=== PATIENT | female | born 1965 | race Caucasian/White ===

== ENCOUNTER 2022-12-17 10:00 | Observation (INO) ==
--- NOTE | 2022-12-02 08:39 | PAT Medication Instructions ---
Medication Instructions Date of Service December 02, 2022 Home Medications meloxicam 15 mg tablet 15 mg PO QAM ashwagandha extract 120 mg capsule 120 mg PO 2XWK calcium carbonate 600 mg calcium (1,500 mg) tablet (Calcium) 600 mg PO QAM cyanocobalamin (vitamin B-12) 1,000 mcg tablet (Vitamin B-12) 1,000 mcg PO QAM estradiol 0.5 mg tablet 0.5 mg PO UD ASK your surgeon for instructions meloxicam 15 mg tablet 15 mg PO QAM estradiol 0.5 mg tablet 0.5 mg PO UD STOP taking 2 weeks before surgery (or as soon as possible if surgery is within 2 weeks) ashwagandha extract 120 mg capsule 120 mg PO 2XWK DO NOT take the morning of surgery calcium carbonate 600 mg calcium (1,500 mg) tablet (Calcium) 600 mg PO QAM cyanocobalamin (vitamin B-12) 1,000 mcg tablet (Vitamin B-12) 1,000 mcg PO QAM Other Notes If you have any questions please call us at [phone] or [phone] or [phone] or [phone]
--- NOTE | 2022-12-02 09:42 | Anesthesiology Consultation ---
Date of Service December 02, 2022 Assessment & Plan (1) Encounter for pre-operative examination: - COVID screening: Per assessment on 12/02: No known COVID-19 positive contacts or current COVID-19 related symptoms. Travel screen negative. Patient vaccinated. At surgeon discretion if preop Covid testing being done. - Outpatient joint assessment: Pt currently scheduled for inpatient pathway. If surgeon requests review for outpatient joint pathway, patient is an acceptable candidate for outpatient joint program from anesthesia standpoint pending surgeon's office assessment that patient is motivated, has good support and completes Same Day Joint Program preop requirements. Chart Review Chart Review: Acceptable Risk for Surgery and Patient seen in Pre Admission Testing Teaching & Discussion Pre-Anesthesia Teaching/Discussion Notes: Instructed NPO after midnight before surgery,except medications with 15 cc of water. Medication instructions provided according to the PAT guidelines. History Surgery Operation Date: 12/17/22 08:15 Proposed Procedures p Left Total Knee Arthroplasty - Alfredo Chavez MD Height/Weight Height: 5 ft 10 in Weight: 75.5 kg Allergies Allergy/AdvReac Type Severity Reaction Status Date / Time No Known Drug Allergies Allergy Verified 12/01/22 16:31 Medications Home Medications Medication Instructions Recorded Confirmed Last Taken meloxicam 15 mg tablet 15 mg PO QAM 12/23/21 12/01/22 Unknown ashwagandha extract 120 mg capsule 120 mg PO 2XWK 12/01/22 12/01/22 Unknown calcium carbonate 600 mg calcium 600 mg PO QAM 12/01/22 12/01/22 Unknown (1,500 mg) tablet (Calcium) cyanocobalamin (vitamin B-12) 1,000 mcg PO QAM 12/01/22 12/01/22 Unknown 1,000 mcg tablet (Vitamin B-12) estradiol 0.5 mg tablet 0.5 mg PO UD 12/01/22 12/01/22 Unknown Past Medical History Medical History Depression Situational (around time of 's ), no meds Hot flashes on estradiol Hypertension No meds currently Exercise / Class Metabolic Activity II 4-5 Yardwork/Stairs/Walk up hill Past Family History Family History Father Cancer non hodgkins lymphoma Other No family history of adverse response to anesthesia Denies family history of Ovarian cancer Prostate cancer Myocardial infarction Breast cancer Colorectal cancer Past Surgical History Surgical History H/O colonoscopy H/O: hysterectomy History of arthroscopy of left knee History of wisdom tooth extraction Past Anesthesia History No Hx of Anesthesia Complications and No Family Hx of Anesthesia Complications History of PONV No Hx of PONV and No Hx of Motion Sickness Social History Smoking Status: Former smoker Do You Dip or Chew Tobacco: No Smoking End Date: Quit 2013 Hx Alcohol Use: Yes Alcohol type: wine alcohol intake frequency: a few times a week Hx Substance Use: No substance use type: does not use Review of Systems Patient denies chest pain, shortness of breath, dyspnea on exertion, fever, chills, cough, wheezing, palpitations. Physical Exam Vital Signs VITALS BP 157/91 P 72 TEMP 98.5 SP02 99%RA RESP 16 PHYSICAL Full cervical extension range of motion. Full TMJ range of motion. TMD 3 finger breaths Mallampati Score 2 Dentition: intact, upper right side bridge Lungs: clear throughout to auscultation Cardiac: regular rate and rhythm, no murmurs noted Spine: normal Carotid arteries: negative bruit Extremities: no edema Lab Results Anesthesia Preop Results Results Anesthesia Widget: WBC 6.84 K/ul (4.8-10.8) 12/02/22 Hgb 13.7 g/dl (12.0-16.0) 12/02/22 Hct 40.3 % (37.0-47.0) 12/02/22 Plt 237 K/uL (130-400) 12/02/22 Na 136 mmol/L (136-145) 12/02/22 K 3.9 mmol/L (3.5-5.1) 12/02/22 Cl 101 mmol/L (98-107) 12/02/22 CO2 33 mmol/L (21-32) H 12/02/22 BUN 19 mg/dl (6-23) 12/02/22 Creat 0.63 mg/dl (0.6-1.2) 12/02/22 Glucose Level 98 mg/dl (70-99(Fasting)) 12/02/22 PT 9.9 Seconds (9.0-12.0) 12/02/22 PTT 25.5 Seconds (21.0-31.0) 12/02/22 INR 0.9 (0.9-1.1) 12/02/22 HA1c 5.4 % (4.5-5.6) 12/02/22 Urine Color Yellow 12/02/22 Urine Appearance Clear (Clear) 12/02/22 Urine pH 5.5 (4.5-7.5) 12/02/22 Urine Specific [place] 1.024 (1.000-1.030) 12/02/22 Urine Protein Negative (Negative) 12/02/22 Urine Glucose (UA) Negative (Negative) 12/02/22 Urine Ketones Trace (Negative) H 12/02/22 Urine Blood Negative (Negative) 12/02/22 Urine Nitrite Negative (Negative) 12/02/22 Urine Bilirubin Negative (Negative) 12/02/22 Urine Urobilinogen Negative (Negative) 12/02/22 Urine Leukocyte Esterase Negative (Negative) 12/02/22 Blood Type B Positive 12/02/22 Antibody Screen NEGATIVE 12/02/22 Testing Electrocardiogram Date: 12/02/22 NSR at 65bpm. COVID-19 Risk Screen Screening Information COVID-19 Screen Date: 12/02/22 Exposure 21 Days Family/Household +COVID Last 21 Days: No Exposure 10 Days Any COVID Exposure Last 10 Days: No Symptoms Last 10 Days Experienced COVID Sx Last 10 Days: No + COVID 0-90 Days COVID + in Last 0-90 Days: No
--- NOTE | 2022-12-02 15:57 | History & Physical Report ---
Date of Service December 02, 2022 Assessment & Plan (1) Osteoarthritis of left knee: Plan: PRE-OP Diagnosis: Left knee osteoarthritis Planned Procedure: Left total knee arthroplasty Plan: Patient is scheduled to undergo this procedure at the [facility] with Dr. Chavez on December. Risks and complications of the procedure such as: Infection, bleeding, pain, scarring, nerve blood vessel damage, weakness, wound problems, stiffness, incomplete relief of symptoms, hardware failure, hardware loosening, wear, fracture, tendon or ligament injury, blood clots, embolism, cardiac, stroke and were explained to the patient at her visit today and informed consent for the procedure was obtained. Patient also understands risks of proceeding with surgical intervention during the COVID-19 pandemic. Currently she is asymptomatic and states that she has not been in contact with anyone positive for the virus recently. We will need to obtain preoperative medical clearance from the patient's primary care provider. Patient is scheduled to meet with anesthesia at the hospital later this morning. While there she will obtain a CBC with differential, complete metabolic panel, PT/INR, PTT, blood type and screen, urinalysis, urine culture and sensitivity, EKG and a nasal culture for MRSA. During today's visit we reviewed the total knee packet. I provided the patient with paperwork to obtain obtaining a handicap placard for her vehicle. I provided her with information about lectures offered by [facility] in regards to joint replacement surgery. I provided her with an order to obtain a walker. I recommended that she purchase a shower chair and raised toilet seat. We discussed discharge planning from the hospital. Patient states she will most likely do in-home physical therapy for the first 2 weeks before transitioning to outpatient physical therapy. I advised the patient that she will be provided with a prescription for narcotic pain medication for postoperative pain control. We will have her on aspirin twice daily for the first 30 days postoperatively for blood clot prevention. Patient verbalized understanding of all information provided during today's visit. She thanks for the care that she received. If she has questions or concerns prior to her surgery, she will contact clinic. Patient be scheduled for 2-week postoperative follow-up visit with myself on December 30. This chart was completed utilizing [employer] voice recognition software. Grammatical errors, random word insertions, pronoun errors, and in complete sentences are an occasional consequence of the system. Any questions or concerns about the content, text, or information contained within the body of this dictation should be addressed directly to the physician for clarification. History of Present Illness Chief Complaint: Chief Complaint: Left knee pain Primary Care Provider: Mervin Wang History of Present Illness (including history relevant to procedure): This 57-year-old female presents to clinic today for her preoperative history and physical. Patient has significant history for osteoarthritis affecting her left knee. I have seen her numerous times in the past for large knee joint effusions and have aspirated them and injected corticosteroid injections. Patient states that most the pain is localized to the lateral aspect of the right knee. She has tried viscosupplementation injections with Euflexxa and been on oral meloxi cam without relief of her symptoms she states she had the knee operated on in [place] several years ago for meniscal injury. She states that the pain is caused her to have a gait disturbance and affects her from doing her daily walks. She is electing to proceed with surgical intervention and wants to stay overnight in the hospital following her procedure. Review Of Systems: A 12 point review of systems is performed and is unremarkable except for those things stated in the HPI and past medical history. Past Medical History: Problems: Osteoarthritis of left knee Knee pain Procedure History Procedure Procedure Date Comments Mammogram Hysterectomy 12/19/2021 - Impression:There is no mammographic evidence of malignancy X-ray of left knee 06/03/2021 - No acute fracture. X-ray of left knee 11/25/2020 - good preservation of joint line Allergies and Sensitivities: NKA No Known Medication Allergies Current Home Meds: (Last Updated 12/02 09:21) ascorbic acid (Vitamin C) cholecalciferol (Vitamin D3) cyanocobalamin (Vitamin B12) estradiol (estradiol 0.5 mg oral tablet) 0.5 mg PO Daily meloxicam (Mobic 15 mg oral tablet) 15 mg PO Daily traMADol (traMADol 50 mg oral tablet) 50 mg PO q4h PRN: as needed for pain turmeric Allergies Allergy/AdvReac Type Severity Reaction Status Date / Time No Known Drug Allergies Allergy Verified 12/01/22 16:31 Home Medications Medication Instructions Recorded Confirmed Type meloxicam 15 mg tablet 15 mg PO QAM 12/23/21 12/01/22 History ashwagandha extract 120 mg capsule 120 mg PO 2XWK 12/01/22 12/01/22 History calcium carbonate 600 mg calcium 600 mg PO QAM 12/01/22 12/01/22 History (1,500 mg) tablet (Calcium) cyanocobalamin (vitamin B-12) 1,000 mcg PO QAM 12/01/22 12/01/22 History 1,000 mcg tablet (Vitamin B-12) estradiol 0.5 mg tablet 0.5 mg PO UD 12/01/22 12/01/22 History Past Med/Surg History Medical History Depression Situational (around time of 's ), no meds Hot flashes on estradiol Hypertension No meds currently Surgical History H/O colonoscopy H/O: hysterectomy History of arthroscopy of left knee History of wisdom tooth extraction Family History Father Cancer non hodgkins lymphoma Other No family history of adverse response to anesthesia Denies family history of Ovarian cancer Prostate cancer Myocardial infarction Breast cancer Colorectal cancer Social History Smoking Status: Former smoker Second Hand Exposure: No; Hx Alcohol Use: Yes Alcohol type: wine Hx Substance Use: No Preferred Language: [place] Communication Ability: Effective Caving Guide Required: No Beliefs That Will Affect Care: None marital status: / Current Living Situation: Alone current occupational status: employed 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 - [employer] How many Children do You have: 1 How many Children do You have Comment: one son - lives in [place] Feels Safe at Home: Yes Diet Comment: well balanced diet caffeine: Yes Dental Care, Regularly: Yes Seatbelt Use: always Sunscreen Use: Yes Assistive Devices: Contacts Review of Systems All systems reviewed & are unremarkable except as noted in Subjective Physical Exam Physical Exam: Physical Exam: (relevant to the procedure, including heart and lung evaluation) General: Alert and oriented x3 with proper grooming and hygiene Eyes: Pupils are equal and reactive to light with accommodation. Extraocular movements are intact Throat: Posterior oropharynx clear with absence of edema, erythema or exudate. Dentition is appropriate Cardiac: Regular rate and rhythm with no murmurs or gallops appreciated Lungs: Clear to auscultation throughout with no wheezing, rales or rhonchi Abdomen: Nonobese, nondistended, nontender with NABS Extremities: Left knee; range of motion is from 4 degrees of extension to about 115 degrees of flexion. There is a small effusion over the anterior aspect of the knee. Patient experiences some slight medial and lateral joint line tenderness when the knee is palpated in the flexed position. Her patella is freely mobile. She has no laxity with varus or valgus stressing. AP drawer sign Carlo test negative. She is neurovascular intact in left lower extremity. Neuro: Cranial nerves II through XII are intact no motor or sensory deficit Skin: Normal appearance with no open skin areas or discharge Results & Data ([facility]) Diagnostic Findings Studies (relevant to the procedure): X-rays done include 3 views of the left knee and standing long-leg alignment films. On the long-leg alignment films, she is in pathologic valgus alignment in both knees with the weightbearing axis passing through the lateral tibial plateau. However, the valgus alignment is more severe on the affected left knee than the right knee. Three-view series of the left knee was compared with her prior films done last year. There has been significant loss of the lateral joint space on today's films compared with her prior films. She is now near [id number] arthritis in the lateral compartment of the left knee.
--- NOTE | 2022-12-02 22:29 | Electrocardiogram Report ---
Test Reason : Blood Pressure : / mmHG Vent. Rate : 065 BPM Atrial Rate : 065 BPM P-R Int : 166 ms QRS Dur : 082 ms QT Int : 384 ms P-R-T Axes : 080 086 076 degrees QTc Int : 399 ms Normal sinus rhythm Normal ECG When compared with ECG of 13-FEB-2009 00:13, No significant change was found Confirmed by Leonard Walton ([id number]) on 12/02/2022 10:29:28 PM Referred By: Alfredo Chavez Confirmed By:Leonard Walton
[~2022-12-17 10:00] MED LIST: ACETAMINOPHEN 500 MG TAB PO SCH; CeleBREX 200 MG CAP PO SCH; FAMOTIDINE 20 MG TAB PO SCH; LR 500ML BOLUS, THEN 15ML/HR IV SCH; LR 60ML/HR IV SCH; ROPIVACAINE 0.5% HCL/PF 150 MG, BUPIVACAINE 0.75% MPF 20 ML, EPINEPHrine 0.15 MG, Ketor... INFIL SCH; Scopolamine 1 MG TDSY TD SCH; TRANEXAMIC ACID 1,000 MG **IV Intra-op IV SCH; TRANEXAMIC ACID 1,000 MG **IV Pre-op IV SCH; ceFAZolin 2000MG 2,000 MG/15 ML SYR IV SCH; dexAMETHasone 4 MG TAB PO SCH; estradioL 1 MG TAB PO SCH; traMADol HCL 50 MG TABLET PO SCH
[2022-12-17] MEDS ORDERED: ROPIVACAINE 0.5% 5 MG/ML 30 ML VIAL ONE (10:26)
[2022-12-17] MEDS ORDERED: BUPIVACAINE 0.5 % 5 MG/1 ML PF 10ML VIAL ONE (10:26)
[2022-12-17] MEDS ORDERED: PROPOFOL IV EMULSION 10 MG/ML 20 ML VIAL IV ONE ×4 (11:30→14:10)
[2022-12-17] MEDS ORDERED: LIDOCAINE 2% MPF LOCAL 5 ML VIAL INFIL ONE (11:30)
[2022-12-17] MEDS ORDERED: fentaNYL citrate 100 MCG/2 ML VIAL ONE (11:30)
[2022-12-17] MEDS ORDERED: MIDAZOLAM HCL 1 MG/ML 2ML VIAL ONE (11:31)
[2022-12-17] MEDS ORDERED: ePHEDrine sulfate 50 MG/ML AMP IV PRN (11:36)
[2022-12-17] MEDS ORDERED: ATROPINE SULFATE 0.1 MG/ML 10ML SYR IV PRN (11:36)
[2022-12-17] MEDS ORDERED: ONDANSETRON INJ 2 MG/ML 2 ML VIAL IV PRN ×2 (11:36→15:21)
[2022-12-17] MEDS ORDERED: HYDROmorphone INJ 1 MG/ML SYRINGE IV PRN (11:36)
--- NOTE | 2022-12-17 11:36 | Anesthesiology Consultation ---
Date of Service December 17, 2022 Assessment & Plan Chart Review Chart Review: Acceptable Risk for Surgery Consults Requested none ASA ASA2 Proposed Anesthesia Anesthesia Type: MAC Spinal Regional Site: Adductor Canal Risk / Benefits Reviewed With: PT / POA / Parent / Guardian, Accepts Plan and Informed Consent Obtained History Surgery Operation Date: 12/17/22 11:55 Proposed Procedures p Left Total Knee Arthroplasty - Alfredo Chavez MD Height/Weight Height: 5 ft 10 in Weight: 74.072 kg Allergies Allergy/AdvReac Type Severity Reaction Status Date / Time No Known Drug Allergies Allergy Verified 12/17/22 10:33 Medications Home Medications Medication Instructions Recorded Confirmed Last Taken meloxicam 15 mg tablet 15 mg PO QAM 12/23/21 12/17/22 12/02/22 08:00 ashwagandha extract 120 mg capsule 120 mg PO 2XWK 12/01/22 12/17/22 12/06/22 08:00 calcium carbonate 600 mg calcium 600 mg PO QAM 12/01/22 12/17/22 12/09/22 08:00 (1,500 mg) tablet (Calcium) cyanocobalamin (vitamin B-12) 1,000 mcg PO QAM 12/01/22 12/17/22 Unknown 1,000 mcg tablet (Vitamin B-12) estradiol 0.5 mg tablet 0.5 mg PO UD 12/01/22 12/17/22 12/12/22 08:00 tramadol 50 mg PO TID PRN Pain 12/17/22 12/17/22 12/16/22 20:00 Active Medications Generic Name Dose Route Start Last Admin Trade Name Santy PRN Reason Stop Dose Admin Acetaminophen 1,000 mg 12/17/22 06:00 12/17/22 10:57 Acetaminophen 500 Mg Tab PO 12/17/22 18:00 1,000 mg PREOP COLTON Administration Celecoxib 200 mg 12/17/22 06:00 12/17/22 10:58 Celebrex 200 Mg Cap PO 12/17/22 18:00 200 mg PREOP COLTON Administration Dexamethasone 8 mg 12/17/22 06:00 12/17/22 10:57 Dexamethasone 4 Mg Tab PO 12/17/22 18:00 8 mg PREOP COLTON Administration Famotidine 20 mg 12/17/22 06:00 12/17/22 10:58 Famotidine 20 Mg Tab PO 12/17/22 18:00 20 mg PREOP COLTON Administration Lactated Ringer's 1,000 mls @ 60 mls/hr 12/17/22 06:00 12/17/22 10:55 Lr IV 12/17/22 22:39 Not Given .[id number] COLTON Tranexamic Acid 1,000 mg in 100 mls @ 600 mls/hr 12/17/22 06:00 12/17/22 12:29 Tranexamic Acid / 0.7% Nacl IV 12/17/22 18:00 600 mls/hr TODAY@0600 COLTON Administration Lactated Ringer's 1,000 mls @ 15 mls/hr 12/17/22 06:00 12/17/22 10:51 Lr IV 12/17/22 18:00 15 mls/hr .[id number] COLTON Administration Scopolamine 1 mg 12/17/22 06:00 12/17/22 10:57 Scopolamine 1 Mg Tdsy TD 12/17/22 18:00 1 mg PREOP COLTON Administration Tramadol HCl 50 mg 12/17/22 06:00 12/17/22 10:58 Tramadol Hcl 50 Mg Tablet PO 12/17/22 18:00 50 mg PREOP COLTON Administration NPO Date Last Intake of Fluids: 12/16/22 Time Last Intake of Fluids: 21:30 Date Last Intake of Solids: 12/16/22 Time Last Intake of Solids: 19:45 Past Medical History Medical History Depression Situational (around time of 's ), no meds Hot flashes on estradiol Hypertension No meds currently Exercise / Class Metabolic Activity II 4-5 Yardwork/Stairs/Walk up hill Past Family History Family History Father Cancer non hodgkins lymphoma Other No family history of adverse response to anesthesia Denies family history of Ovarian cancer Prostate cancer Myocardial infarction Breast cancer Colorectal cancer Past Surgical History Surgical History H/O colonoscopy H/O: hysterectomy History of arthroscopy of left knee History of wisdom tooth extraction Past Anesthesia History No Hx of Anesthesia Complications and No Family Hx of Anesthesia Complications History of PONV No Hx of PONV and No Hx of Motion Sickness Social History Smoking Status: Former smoker Do You Dip or Chew Tobacco: No Smoking End Date: Quit 2013 Hx Alcohol Use: Yes Alcohol type: wine alcohol intake frequency: a few times a week Hx Substance Use: No substance use type: does not use Physical Exam Vital Signs Last Vital Signs Temp 36.9 C 12/17/22 10:39 Pulse 77 12/17/22 12:55 Resp 16 12/17/22 12:55 BP 162/91 H 12/17/22 12:55 Pulse Ox 100 12/17/22 12:55 O2 Del Method Oxymask 12/17/22 12:55 O2 Flow Rate 5 12/17/22 12:55 Constitutional no acute distress ENMT Thyromental Distance: > or= 3.5 Finger Breadths Mallampati Class: II Neck normal visual inspection Respiratory normal respiratory effort; no respiratory distress Auscultation: lungs clear to auscultation bilaterally Cardiovascular Rate/Rhythm: regular rate and regular rhythm Heart Sounds: no murmur Psychiatric Orientation: alert and oriented x 3 Testing Electrocardiogram Date: 12/02/22 NSR at 65bpm.
--- NOTE | 2022-12-17 12:20 | History & Physical Bridge Note ---
Date of Service December 17, 2022 History & Physical Bridge Note I have examined the patient, reviewed the History & Physical and in the interval since the performance of the History & Physical I have noted the following changes of clinical significance: no changes noted
[2022-12-17] MEDS ORDERED: ORTHO JOINT ANESTHETIC ONE (12:33)
[2022-12-17] MEDS ORDERED: LABETALOL HCL IV 5 MG/ML 20ML IV ONE (13:34)
--- NOTE | 2022-12-17 15:13 | Operative Report ---
Post Operative Report Pre & Post Diagnosis Operation Date: 12/17/22 11:55 Pre-Op Diagnosis: Left Knee Osteoarthritis Post-Op Diagnosis: Left Knee Osteoarthritis I identified the patient and participated in the time-out.: Yes Procedure Operation Date: 12/17/22 11:55 Actual Procedures p Left Total Knee Arthroplasty(Left) - Alfredo Chavez MD Surgeon Alfredo Chavez MD Plastics Sheet Finishing Press Operator ANAYA Dangelo PA-C and Aman Olson MS-2. No resident or fellow was available Estimated Blood Loss 50 Findings Consistent with Post-Op Diagnosis Specimens Left knee bone and soft tissue contents Anesthesia Type Spinal MAC Complications none Disposition Disposition: Recovery Room Indications 57-year-old female with left knee osteoarthritis refractory to conservative management. X-rays and MRI were obtained. She has valgus malalignment of her knee, as well as full-thickness chondral loss in the lateral compartment, both the femoral and tibial sides. She has failed extensive nonsurgical management. She is therefore a candidate for total knee replacement. I had a long discussion with her about the risks and benefits of surgery, alternatives, and expected outcomes. After reviewing all these she elected to proceed with surgery. All questions were answered. Informed consent was signed. Description of Procedure Patient was identified in the preoperative holding area where the surgical site, left knee, was marked. Spinal anesthetic was placed by anesthesia. Patient was brought back to the operating room, placed on the operating room table, and IV sedation was administered. A bump was placed underneath the ipsilateral hip. All bony prominences were padded. Perioperative antibiotics and tranexamic acid were administered. Exam under anesthesia was performed. This demonstrated ra nge of motion from 5degrees to 125 degrees. She had valgus malalignment of approximately 15 degrees. Collateral ligament testing was stable at 30 degrees of flexion. The surgical site was prepped and draped in the normal sterile fashion. Prior to incision a multidisciplinary timeout was called. All in the room were in agreement. We began by exsanguinating the limb with an Esmarch bandage. Tourniquet was inflated to 250 mmHg. A 14 cm long incision was made over the anterior aspect of the knee. I dissected through the subcutaneous tissues to the level of the fascia. Full-thickness flaps were raised above the fascia. A median parapatellar arthrotomy was made. Half the fat pad was excised. A medial release was performed with Bovie electrocautery on the proximal tibia. Synovitis in the knee and suprapatellar pouch was removed. The patella was then everted and held with 2 towel clips. The thickness of the patella was measured at 25 mm. Patellar resection was performed. Caliper showed the patella thickness now to be 15 mm. A size 38 trial was placed and had a great fit. The 3 drill holes were placed then the trial button was placed. The patellar thickness was now 25 mm which I was very happy with. The patellar trial was then removed, and the knee was flexed up. Retractors were placed to protect the MCL and LCL. The knee was inspected and demonstrated full-thickness chondral loss of both the lateral femoral condyle and lateral tibial plateau. Osteophytes were removed from the lateral femoral condyle and intercondylar notch. The ACL and PCL were excised. Intramedullary drill guide was drilled into the femur. Distal femoral cutting guide was placed set at 5 degrees of valgus to resect 10 mm off the distal femur. Distal femoral resection was made without difficulty. The tibia was then exposed. The lateral meniscus was sharply excised. The tibial cutting jig was positioned in line with the tibial shaft in the coronal plane and with 3 degrees of posterior slope in the sagittal plane to resect 9 mm off the less involved compartment. The jig was then pinned in position and the tibial cut was made. We then brought the knee into full extension. Lamina spreaders were placed. The medial meniscus was excised. The extension block was then placed for 5 mm thickness poly. This gave us full extension and excellent stability to varus and valgus stress. Next the extension block was removed, the knee was flexed up, collateral ligaments were protected, and the epicondylar axis and Whitesides line were marked out on the distal femoral cut. Femoral sizing guide was placed. External rotation was set at 5 degrees so that the posterior cut would be parallel with the epicondylar axis and perpendicular with Whitesides line. The patient sized to a size 6 femur. The appropriately sized 4-in-1 cutting jig was then fixated to the bone using threaded, headed pins. We confirmed that we would not notch the femur with our anterior cut. Our 4 cuts were then made. The cutting jig was removed. The flexion block was then placed with the knee held at 90 degrees. There was excellent stability to varus and valgus at 90 degrees with no gapping medially or laterally. Next the box cutting jig was placed on the distal femur. The box cut was made and the femoral trial was impacted into position. Lug holes were drilled in the distal femur. We then reexposed the tibia. The tibia was sized to a 6 for a fixed bearing component. The tibial tray with a 5 mm thickness polyethylene liner was placed on the cut tibial surface and the knee was brought through a full range of motion. There was excellent stability to varus valgus stress throughout a full range of motion, which was approximately 0-145 degrees. Bovie electrocautery was used to serina the tibia at the site where the tibial tray rested in full extension. We then flexed up the knee, removed the polyethylene liner, and pinned the tibial tray into position to match the cautery serina. The intramedullary drill followed by the keel punch were used to prepare the tibia. Next the trial components were removed. I then injected the posterior capsule and periosteum with the periarticular injection cocktail. The bone cuts were then irrigated and dried while the cement was mixed on the back table. The femoral component was cemented on first. Excess cement was removed. A lap sponge was placed over the femoral component for protection, then the tibia was subluxated anteriorly. The all polyethylene tibial component was then cemented in place. Again excess cement was removed. The knee was brought into full extension and held there until the cement cured. The patella was cemented and clamped. Dilute Betadine solution was then allowed to soak in the knee while the cement cured. Once the cement was fully cured, the knee was irrigated out, the tourniquet was let down and meticulous hemostasis was ensured. The knee was brought through a full range of motion. I was were very happy with the patella tracking and the stability. We then began to close. Interrupted 0 Vicryl suture was used to repair the patellar retinaculum in [id number] fashion. The quadriceps and patellar tendons were run with #1 Vicryl. The deep dermal layer was closed with interrupted 2-0 Vicryl. Dermabond and Zipline was used for the skin, followed by a Silverlon dressing. A compressive Len wrap was placed and the knee was placed into a knee immobilizer. Patient's sedation was lifted and was transferred to recovery room in stable condition. Summary of implants: Depuy Attune Posterior Stabilized Cemented Femur, size 6 narrow left Attune All-polyethylene tibial component, posterior stabilized 5 mm thickness, size 6 Attune patella medialized dome, size 38 2 batches of simplex high viscosity bone cement Postoperative course: Patient will be admitted to the floor for pain control and monitoring. Weightbearing as tolerated with a walker with no knee range of motion for 48 hours. Aspirin for DVT prophylaxis. I attest to the content of the Intraoperative Record and any orders documented therein. Any exceptions are noted below.
[2022-12-17] MEDS ORDERED: bisacodyL 10 MG SUPP PR PRN (15:21)
[2022-12-17] MEDS ORDERED: NALOXONE HCL 0.4 MG/1 ML VIAL/CARP IV PRN (15:21)
[2022-12-17] MEDS ORDERED: METOCLOPRAMIDE HCL INJ 5 MG/ML 2 ML VIAL IV PRN (15:21)
[2022-12-17] MEDS ORDERED: diphenhydrAMINE 50 MG/ML VIAL IV PRN (15:21)
[2022-12-17] MEDS ORDERED: ALUMINUM/MAGNESIUM SUSP 30 ML UDC PO PRN (15:21)
[2022-12-17] MEDS ORDERED: MAGNESIUM HYDROXIDE SUSP 30 ML UDC PO PRN (15:21)
--- NOTE | 2022-12-17 15:21 | Operative Report ---
Post Operative Report Pre & Post Diagnosis Operation Date: 12/17/22 11:55 Pre-Op Diagnosis: Left Knee Osteoarthritis Post-Op Diagnosis: Left Knee Osteoarthritis I identified the patient and participated in the time-out.: Yes Procedure Operation Date: 12/17/22 11:55 Actual Procedures p Left Total Knee Arthroplasty(Left) - Alfredo Chavez MD Surgeon Alfredo Chavez MD Theater Education Teacher ANAYA Dangelo PA-C and Aman Olson MS-2. No resident or fellow was available Estimated Blood Loss 50 Findings Consistent with Post-Op Diagnosis Specimens none Description of Procedure I was present during the entire procedure assisting with positioning, prepping, draping, wound retraction, wound closure, dressing and immobilizer placement. No fellow present. Please see Dr. Chavez procedure note for specifics of the case. I attest to the content of the Intraoperative Record and any orders documented therein. Any exceptions are noted below.
[2022-12-17] MEDS ORDERED: ASHWAGANDHA PO SCH (15:30)
--- NOTE | 2022-12-17 16:00 | XRay Report ---
LEFT KNEE 2 VIEWS History: Left total knee arthroplasty. Degenerative arthritis. Postop. FINDINGS: The patient is status post a left total knee arthroplasty. The hardware is intact. No fract ure or dislocation. IMPRESSION: Left total knee arthroplasty. No evidence for hardware complication. ACT 112: Negative or not required by law. Electronically signed by: Liang Jarrett M.D. 12/17/2022 3:58 PM
[2022-12-17] MEDS: SODIUM CHLORIDE 0.9% 1000ML 1,000 ML IV SCH ×2 (16:50→22:41)
[2022-12-17] MEDS: Scopolamine CHECK PATCH PLACEMENT SCH (16:51)
[2022-12-17] MEDS: KETOROLAC TROMETHAMINE 15 MG/ML VIAL IV SCH ×2 (16:51→21:47)
--- NOTE | 2022-12-17 18:37 | Anesthesiology Progress Note ---
Date of Service December 17, 2022 Anesthesia Post Procedure Vital Signs Vital Signs: Temp Pulse Pulse Pulse Resp BP Pulse Ox 12/17/22 18:01 97.7 F 78 16 133/83 97 12/17/22 17:15 97.7 F 78 16 133/77 96 12/17/22 16:45 97.5 F L 63 16 126/77 95 12/17/22 16:15 97.9 F 68 16 129/77 94 12/17/22 16:05 60 12 127/77 95 12/17/22 15:55 98.1 F 62 12 131/79 92 12/17/22 15:45 69 16 136/81 94 12/17/22 15:35 71 19 133/81 94 12/17/22 15:25 78 12 139/92 100 12/17/22 15:17 97.5 F L 86 16 142/91 H 98 12/17/22 12:55 77 16 162/91 H 100 12/17/22 13:05 67 16 149/85 H 100 12/17/22 12:45 76 16 147/88 H 100 12/17/22 10:39 98.4 F 79 20 166/100 H 97 O2 Del Method O2 Flow Rate 12/17/22 18:01 Room Air 12/17/22 17:15 Room Air 12/17/22 16:45 Room Air 12/17/22 16:15 Room Air 12/17/22 16:05 Room Air 12/17/22 15:55 Room Air 12/17/22 15:45 Room Air 12/17/22 15:35 Room Air 12/17/22 15:25 Oxymask 5 12/17/22 15:17 Oxymask 5 12/17/22 12:55 Oxymask 5 12/17/22 13:05 Oxymask 5 12/17/22 12:45 Oxymask 5 12/17/22 10:39 Room Air Pain Intensity Left Knee: Pain Intensity: 6 Transfer of Care Handoff Completed per policy Notes Mental Status: alert / awake / arousable and participated in evaluation Patient Amnestic to Procedure: Yes Nausea / Vomiting: adequately controlled Pain: adequately controlled Airway Patency, RR, SpO2: stable & adequate BP & HR: stable & adequate Hydration State: stable & adequate Neuraxial Anesthesia: was administered and sensory block is resolving Anesthetic Complications: no major complications apparent and Pt Satisfied with anesthetic care
[2022-12-17] MEDS: CeleBREX 200 MG CAP PO SCH (18:59)
[2022-12-17] MEDS: oxyCODONE HCL IR 5 MG TAB (IMMEDIATE RELEASE) PO PRN ×2 (19:44→23:07)
[2022-12-17] MEDS: ASPIRIN 81 MG ECTAB PO SCH (19:45)
[2022-12-17] MEDS: DOCUSATE SODIUM 100 MG CAP PO SCH (19:45)
[2022-12-17] MEDS: HYDROmorphone INJ 0.5 MG/0.5 ML SYR IV PRN (20:32)
[2022-12-17] MEDS ORDERED: SENNA 8.6 MG TAB PO SCH (21:00)
[2022-12-17] MEDS ORDERED: TRANEXAMIC ACID / 0.7% NACL 1,000 MG/100 ML BAG IV SCH (21:30)
[2022-12-17] MEDS: ACETAMINOPHEN 500 MG TAB PO SCH (21:50)
[2022-12-17] MEDS: ceFAZolin 2000MG 2,000 MG/15 ML SYR IV SCH (21:50)
[2022-12-18] MEDS: Scopolamine CHECK PATCH PLACEMENT SCH ×2 (00:03→07:27)
[2022-12-18] MEDS: HYDROmorphone INJ 0.5 MG/0.5 ML SYR IV PRN (00:45)
[2022-12-18] MEDS: KETOROLAC TROMETHAMINE 15 MG/ML VIAL IV SCH ×2 (03:03→09:04)
[2022-12-18] MEDS: oxyCODONE HCL IR 5 MG TAB (IMMEDIATE RELEASE) PO PRN (03:06)
[2022-12-18] MEDS: ACETAMINOPHEN 500 MG TAB PO SCH (06:30)
[2022-12-18 06:31] LABS: Hematocrit (blood only) 29.4 % (37.0-47.0); Hemoglobin 9.9 g/dl (12.0-16.0); Mean Corpuscular Hemoglobin 31.1 pg (25.0-34.0); Mean Corpuscular Hgb Conc 33.7 g/dL (32.0-36.0); Mean Corpuscular Volume 92.5 fL (80.0-100.0); Mean Platelet Volume 9.8 fL (9.4-12.4); Platelet Count 224 K/uL (130-400); RDW Coefficient of Variation 11.9 % (11.5-14.5); RDW Standard Deviation 40.6 fL (36.4-46.3); Red Blood Count 3.18 M/uL (4.20-5.40); White Blood Count 13.74 K/ul (4.8-10.8)
[2022-12-18 07:20] LABS: BUN Creatinine Ratio 24.7 (10-20); Creatinine Clr Calc Pharmacy 84.9 ml/min; Est GFR (African American) 94.8 ml/min; Est GFR (Non-African American) 81.8 ml/min; Potassium 4.6 mmol/L (3.5-5.1)
[2022-12-18] MEDS: ceFAZolin 2000MG 2,000 MG/15 ML SYR IV SCH (07:25)
[2022-12-18] MEDS ORDERED: dexAMETHasone 4 MG TAB PO SCH (08:00)
[2022-12-18] MEDS: DOCUSATE SODIUM 100 MG CAP PO SCH (08:24)
[2022-12-18] MEDS: ASPIRIN 81 MG ECTAB PO SCH (08:24)
[2022-12-18] MEDS: CeleBREX 200 MG CAP PO SCH (08:25)
[2022-12-18] MEDS ORDERED: estradioL 1 MG TAB PO SCH ×2 (09:00)
[2022-12-18] MEDS ORDERED: MULTIVITAMIN TAB PO SCH (09:00)
[2022-12-18] MEDS ORDERED: CYANOCOBALAMIN (B-12) 500 MCG TABLET PO SCH (09:00)
[2022-12-18] MEDS ORDERED: CALCIUM CARBONATE 1250MG TAB PO SCH (09:00)
--- NOTE | 2022-12-18 10:17 | Orthopedic Progress Note ---
Date of Service December 18, 2022 Assessment & Plan (1) Status post total left knee replacement using cement: Plan: Weightbearing as tolerated with walker assistance and immobilizer for first 48 hours postoperatively Pain controlled p.o. medication DVT prophylaxis with ERI stockings and aspirin Keep Silverlon dressing in place until follow-up Ice with easy wrap Plan is to discharge home later today with in-home physical therapy for the first 2 weeks postoperatively Follow-up with [facility] [address] orthopedics as previously scheduled With questions contact our clinic at [phone]. Admission and Anticipated Discharge Date Admission Date: December 17, 2022 Subjective This 57-year-old female is day 1 status post left total knee arthroplasty. She states she is doing very well. She states she does have some pain in the operative extremity but feels that the oral pain medication is helping to take the edge off. Patient states she has been able to transfer from her bed to the bathroom and void several times without issue. She is very pleased that her leg looks straight today. She had valgus malalignment prior to the surgery. Currently she denies chest pain, shortness of breath, fever, chills, sweats, numbness or tingling in her left lower extremity. She also denies nausea, vomiting, diarrhea or difficulty voiding. Review of Systems Review of Systems: All systems reviewed & are unremarkable except as noted in Subjective Physical Exam Physical Exam: Left lower extremity: Outer dressing was removed. Silverlon is clean dry and intact. Patient is able to form an active straight leg raise test. She is able to actively dorsi and plantarflex her foot. Active knee range of motion is from 0 degrees of extension to about 65 degrees of flexion. Quad strength is 3+ out of 5. Patient is neurovascular intact in the left lower extremity. Results & Data ([facility]) Vital Signs (Past 12 Hours) Vital Signs Temp Pulse Pulse Resp BP BP Pulse Ox 12/18/22 08:16 36.9 C 52 L 16 122/67 94 12/18/22 03:00 36.9 C 62 16 96/57 L 97 12/17/22 23:32 36.7 C 66 18 106/58 L 97 O2 Del Method 12/18/22 08:16 Room Air 12/18/22 03:00 Room Air 12/17/22 23:32 Room Air Diagnostic Findings Laboratory Results WBC 13.74 K/ul (4.8-10.8) H 12/18/22 05:50 RBC 3.18 M/uL (4.20-5.40) L 12/18/22 05:50 Hgb 9.9 g/dl (12.0-16.0) L 12/18/22 05:50 Hct 29.4 % (37.0-47.0) L 12/18/22 05:50 MCV 92.5 fL (80.0-100.0) 12/18/22 05:50 MCH 31.1 pg (25.0-34.0) 12/18/22 05:50 MCHC 33.7 g/dL (32.0-36.0) 12/18/22 05:50 RDW Std Deviation 40.6 fL (36.4-46.3) 12/18/22 05:50 RDW Coeff of Francis 11.9 % (11.5-14.5) 12/18/22 05:50 Plt Count 224 K/uL (130-400) 12/18/22 05:50 MPV 9.8 fL (9.4-12.4) 12/18/22 05:50 Sodium 136 mmol/L (136-145) 12/18/22 05:50 Potassium 4.6 mmol/L (3.5-5.1) 12/18/22 05:50 Chloride 103 mmol/L (98-107) 12/18/22 05:50 Carbon Dioxide 31 mmol/L (21-32) 12/18/22 05:50 Anion Gap 2 (3-11) L 12/18/22 05:50 BUN 20 mg/dl (6-23) 12/18/22 05:50 Creatinine 0.81 mg/dl (0.6-1.2) 12/18/22 05:50 Est Cr Clr Drug Dosing 84.9 ml/min 12/18/22 05:50 Est GFR ( Amer) 94.8 ml/min 12/18/22 05:50 Est GFR (Non-Af Amer) 81.8 ml/min 12/18/22 05:50 BUN/Creatinine Ratio 24.7 (10-20) H 12/18/22 05:50 Glucose 111 mg/dl (70-99(Fasting)) H 12/18/22 05:50 Calcium 9.0 mg/dl (8.5-10.1) 12/18/22 05:50 SARS-CoV-2, RNA, NAAT NEGATIVE (NEGATIVE) 12/17/22 10:21 Impressions Knee X-Ray 12/17/22 15:24 LEFT KNEE 2 VIEWS History: Left total knee arthroplasty. Degenerative arthritis. Postop. FINDINGS: The patient is status post a left total knee arthroplasty. The hardware is intact. No fracture or dislocation. IMPRESSION: Left total knee arthroplasty. No evidence for hardware complication. ACT 112: Negative or not required by law. Electronically signed by: Liang Jarrett M.D. 12/17/2022 3:58 PM
--- NOTE | 2022-12-18 10:23 | Discharge Summary ---
Date of Service December 18, 2022 Admission HPI Per Admitting Provider History of Present Illness (including history relevant to procedure): This 57-year-old female presents to clinic today for her preoperative history and physical. Patient has significant history for osteoarthritis affecting her left knee. I have seen her numerous times in the past for large knee joint effusions and have aspirated them and injected corticosteroid injections. Patient states that most the pain is localized to the lateral aspect of the right knee. She has tried viscosupplementation injections with Euflexxa and been on oral meloxicam without relief of her symptoms she states she had the knee operated on in [place] several years ago for meniscal injury. She states that the pain is caused her to have a gait disturbance and affects her from doing her daily walks. She is electing to proceed with surgical intervention and wants to stay overnight in the hospital following her procedure. Review Of Systems: A 12 point review of systems is performed and is unremarkable except for those things stated in the HPI and past medical history. Past Medical History: Problems: Osteoarthritis of left knee Knee pain Procedure History Procedure Procedure Date Comments Mammogram Hysterectomy 12/19/2021 - Impression:There is no mammographic evidence of malignancy X-ray of left knee 06/03/2021 - No acute fracture. X-ray of left knee 11/25/2020 - good preservation of joint line Allergies and Sensitivities: NKA No Known Medication Allergies Current Home Meds: (Last Updated 12/02 09:21) ascorbic acid (Vitamin C) cholecalciferol (Vitamin D3) cyanocobalamin (Vitamin B12) estradiol (estradiol 0.5 mg oral tablet) 0.5 mg PO Daily meloxicam (Mobic 15 mg oral tablet) 15 mg PO Daily traMADol (traMADol 50 mg oral tablet) 50 mg PO q4h PRN: as needed for pain turmeric Admission Exam Per Admitting Provider Physical Exam: (relevant to the procedure, including heart and lung evaluation) General: Alert and oriented x3 with proper grooming and hygiene Eyes: Pupils are equal and reactive to light with accommodation. Extraocular movements are intact Throat: Posterior oropharynx clear with absence of edema, erythema or exudate. Dentition is appropriate Cardiac: Regular rate and rhythm with no murmurs or gallops appreciated Lungs: Clear to auscultation throughout with no wheezing, rales or rhonchi Abdomen: Nonobese, nondistended, nontender with NABS Extremities: Left knee; range of motion is from 4 degrees of extension to about 115 degrees of flexion. There is a small effusion over the anterior aspect of the knee. Patient experiences some slight medial and lateral joint line tenderness when the knee is palpated in the flexed position. Her patella is freely mobile. She has no laxity with varus or valgus stressing. AP drawer sign Carlo test negative. She is neurovascular intact in left lower extremity. Neuro: Cranial nerves II through XII are intact no motor or sensory deficit Skin: Normal appearance with no open skin areas or discharge Principal Diagnosis Left knee osteoarthritis Discharge Exam Left lower extremity: Outer dressing was removed. Silverlon is clean dry and intact. Patient is able to form an active straight leg raise test. She is able to actively dorsi and plantarflex her foot. Active knee range of motion is from 0 degrees of extension to about 65 degrees of flexion. Quad strength is 3+ out of 5. Patient is neurovascular intact in the left lower extremity. Discharge Data Allergies Allergy/AdvReac Type Severity Reaction Status Date / Time No Known Drug Allergies Allergy Verified 12/17/22 10:33 Procedures Performed Operation Date: 12/17/22 11:55 Actual Procedures p Left Total Knee Arthroplasty(Left) - Alfredo Chavez MD Ordered Studies 12/17/22 05:00 US - OR guided needle placemen Routine Hospital Course (1) Status post total left knee replacement using cement: Patient had an uneventful overnight stay following left total knee arthroplasty. She is doing very well this morning. Her plan is to be discharged home later this morning with in-home physical therapy for the first 2 weeks postoperatively. Weightbearing as tolerated with walker assistance and immobilizer for first 48 hours postoperatively Pain controlled p.o. medication DVT prophylaxis with ERI stockings and aspirin Keep Silverlon dressing in place until follow-up Ice with easy wrap Plan is to discharge home later today with in-home physical therapy for the first 2 weeks postoperatively Follow-up with [facility] orthopedics as previously scheduled With questions contact our clinic at [phone]. Total Time Total Time Spent Total Time Spent (In Minutes): 20 minutes Discharge Plan Discharge Items Patient Disposition: Home - Home Health Services Reason For Visit: Left Knee Osteoarthritis Discharge Diagnosis: Left Knee Osteoarthritis Activity: As commented below Lifting: None Bathing: Keep incision dry Bathing Comment: May shower tomorrow Sexual Activity: Wait until after follow-up appointment Exercise/Sports: Wait until after follow-up appointment Driving/Machine Use: No driving until cleared by public transit specialist Weightbearing: Left weightbearing Weightbearing Comment: as tolerated with walker assistance and immobilizer for 48 hrs Non-emergency contact: Surgeon Call non-emergency contact if: you have any medication questions, your pain is not controlled, your temperature is above 101.5, your wound has increased drainage and your wound pain has increased Follow-up/Referrals: Mervin Wang [Primary Care Provider] - Diet: Regular Addtl Attending Provider Instructions: Post-operative Instructions Dear Patient and Family/Friends, Before you are discharged from the hospital, it is important to know what to expect when you get home after surgery. To that end, we have created this sheet of discharge instructions which covers many commonly asked questions. Make sure you go through this sheet in its entirety with your nurse before you are discharged. Please note that we will go over the specifics of your surgery and recovery when you return for your first post-operative visit. Sincerely, Dr. Chavez Medications 1. Oxycodone 5 mg: take 1-2 tab every 4-6 hours as needed for pain relief. A prescription will be sen to your pharmacy. 2. Diclofenac Sodium 75 mg: take 1 tab twice daily for 30 days post operatively for pain and inflammation relief. This will also be sent to your pharmacy with 1 refill. 3. Aspirin 81 mg: take 1 tab twice daily for 30 days post operatively for blood clot prevention. Please purchase. 4. Extra Strength Tylenol 500 mg: take 2 tabs every 6-8 hour as needed for additional pain relief. Please purchase. Pain Expect to be in a fair amount of pain after surgery. Remember, our goal is not to eliminate your pain, but to make it tolerable. It is a good idea to stay ahead of your pain by taking the medications you were prescribed once you get home. Typically, the pain starts improving 3-7 days after surgery. You should start weaning off the narcotic pain medication (oxycodone, hydrocodone, hydromorphone, morphine) as soon as your pain improves. Please call our office if your pain is not adequately controlled. Ice Ice your operative site at least 5 times a day for 15-30 minutes at a time. Make sure you have a thin cloth between the ice or cooling unit and your skin to prevent vallejo bite. This is especially important if you received a nerve block. Continue icing your operative site for the first 5-7 days after surgery, then as needed. Diet/Nausea/Vomiting Start by drinking clear liquids and eating crackers. If you can tolerate this, then you may resume your normal diet. If you feel nauseated or vomit, take Zofran/ondansetron (if prescribed). Please call our office if you have intractable nausea or vomiting, or, if after hours, you may go to the Emergency Room for help. Constipation Constipation is a common side effect of narcotic pain medication. If you have not had a bowel movement within 2 days after surgery, we recommend purchasing an over the counter laxative such as Milk of Magnesia, Dulcolax, or Miralax from a local pharmacy, and taking it as instructed. Call our clinic if any questions. Slings and Braces If you were placed in a sling or brace, it must be worn at all times, including sleep. You may remove your sling or brace for physical therapy, home exercises, and showering. The length of time you will be in your brace and range of motion restrictions depends on what surgery you had; these details will be reviewed at your first post-operative appointment. Nerve block The anesthesia team sometimes places a nerve block to help with post-operative pain control. This results in significant numbness and inability to move the extremity. The nerve block usually wears off in 8-12 hours, but sometimes can last up to 24 hours. Please call our office if you are still unable to move your extremity after 24 hours, unless you received a pain pump to take home. Nerve blocks typically wear off quickly, so start taking pain medication as soon as you start feeling soreness near your surgical site. Weight bearing and Range of Motion. Do not bear any weight through your operative extremity immediately after surgery. If you had upper extremity surgery, do not lift anything with that arm. If you are in a knee brace, keep it locked in place until your follow-up. We will discuss your weight bearing, range of motion, and lifting restrictions in detail at your first post-operative appointment. Continuous Passive Motion (CPM) Machine If you were prescribed a CPM machine, it will start after your first post- operative appointment, at which time we will give you instructions on the range of motion settings and duration of treatment Physical therapy You will be given a prescription for physical therapy or occupational therapy at your first post-operative appointment. Typically, patients start therapy within 1 week of surgery Wound care and showering We will inspect your wound at your first post-operative visit, and may do a dressing change at that time. Most patients will be in a water-proof dressing that is removed 14 days after surgery. It is normal to see some dried blood on the dressing. Do not remove your dressing, paper strips or sutures yourself unless you are given permission. Showering is allowed the day after surgery. Do not scrub or remove any dressings. The wound should not be submerged underwater (i.e. in a bathtub or pool) until 4 weeks after surgery ERI stockings If you were given white stockings, these are to be worn at all times except to shower (on both legs) for the first 2 weeks after surgery. Driving You may not drive while taking narcotic pain medication or while in a cast, splint, sling or brace. You, the patient, need to make the final determination about when you are safe to drive, however, the earliest you may consider driving after surgery is below: Hand/Wrist/Elbow Surgery: 3 days Shoulder Surgery: 2 weeks Hip,/Knee/Ankle Surgery: 4 weeks Fracture repair: 6 weeks Return to Work Your return to work depends on what surgery was done and what type of work you do. Please bring any paperwork your employer needs completed to your first post-operative visit. Also, bring a description of your job duties, as this helps us to understand what risks you may face at work. Travel Avoid long distance travel (greater than 1 hour) in airplanes and cars for the first 6 weeks after surgery. If you must travel, you need to have a Doppler ultrasound done before you travel to rule out a blood clot in your legs. Follow-up You should have a follow-up appointment already scheduled 1-2 days after surgery. If not, please contact our office to make this appointment before you leave the hospital. When to call the office It is normal to have swelling and bruising in the limb that was operated on. This will improve with time. It is also normal to have fevers for the first 2 days after surgery. Reasons you should call your doctor include: Uncontrolled pain; Nausea, vomiting, or constipation that does not improve with medication; Fevers over 101.5, chills, sweats; Drainage or bleeding from the wound; Foul odor; Spreading areas of redness; Any other concerns Pending Studies at Discharge: No Stand-Alone Forms: [facility] Medications and DC Order Prescriptions: New aspirin 81 mg Tablet,Delayed Release (Dr/Ec) 81 mg PO BID 30 Days Qty: 60 0RF acetaminophen [Tylenol Extra Strength] 500 mg Tablet 1,000 mg PO Q8 30 Days Qty: 180 0RF oxycodone 5 mg Tablet 5 - 10 mg PO Q4H PRN (Reason: Postoperative pain control) Qty: 28 0RF diclofenac sodium 75 mg tablet,delayed release (DR/EC) 75 mg PO BID 30 Days Qty: 60 1RF Continued estradiol 0.5 mg tablet 0.5 mg PO UD Patient Comments: takes in the am--takes for 2 days, then off for 1 day, then back on for 2 days and so on... cyanocobalamin (vitamin B-12) [Vitamin B-12] 1,000 mcg Tablet 1,000 mcg PO QAM calcium carbonate [Calcium 600] 600 mg calcium (1,500 mg) Tablet 600 mg PO QAM ashwagandha extract 120 mg Capsule 120 mg PO [id number] Discontinued meloxicam 15 mg tablet 15 mg PO QAM tramadol 50 mg 50 mg PO TID PRN (Reason: Pain) Admission Data Admit Date/Time: 12/17/22 15:22 Attending Provider: Alfredo Chavez Admit Provider: Alfredo Chavez Primary Care Provider: Mervin Wang
[2022-12-19] MEDS ORDERED: estradioL 1 MG TAB PO SCH (09:00)
== END 2022-12-18 11:54 | disposition home or self-care (01) ==
LOC: ASU 10:00 → 3E 10:00